=== PATIENT | female | born 1990 | race Caucasian/White ===

== ENCOUNTER 2016-11-09 22:49 | Emergency (ER) | payer BC, OTHER ==
[~2016-11-09] VITALS: Ht 160 cm; Wt 107.8 kg
[~2016-11-09 22:49] MED LIST: HYDR5TAB27 PO; NUVVR VAGRING
[2016-11-09 22:51] VITALS: TEMP 37.4; Ht 160 cm; Wt 107.8 kg
[2016-11-09] MEDS ORDERED: XYLOCAINE 1%/SOD BICARB 20 ML VIAL INFIL ONE (23:03)
[2016-11-09] MEDS ORDERED: CEPHALEXIN 500MG HOME PACK 1 EA BTL PO ONE (23:30)
[2016-11-09] MEDS ORDERED: SEPTRA DS HOME PACK 1 EA VIAL PO ONE (23:30)
[2016-11-09] MEDS ORDERED: DPPRI400 INJ (23:37)
[2016-11-10] MEDS ORDERED: CEPH500C2 PO (00:18)
[2016-11-10] MEDS ORDERED: SULF800T23 PO (00:18)
[2016-11-10 00:27] VITALS: BP 124/100; PULSE 99; O2SAT 98
--- NOTE | 2016-11-10 05:12 | EMERGENCY ROOM VISIT NOTE ---
ED Visit Note First contact with patient: 22:58 CHIEF COMPLAINT: Infection of the tailbone HISTORY OF PRESENT ILLNESS: This 26-year-old patient presents to the emergency department after they noticed a hard, red, tender area pilonidal area. It is slowly getting larger, more painful and tender. No fever, chills, or loss of appetite. There has been drainage from the area. There was no injury to the area preceding the infection. They rate the pain as mild and 3/10. Tetanus shot is up to date. They have tried surgical resection. The patient is not diabetic. The patient has history of subcutaneous abscesses. Patient had this surgically removed already. She cannot recall the surgeon's name. REVIEW OF SYSTEMS: A review of systems was performed with positives and pertinent negatives listed in the history of present illness. All other systems were reviewed and are negative. ALLERGIES: None MEDICATIONS: None PMH: [place] teeth SOCIAL HISTORY: No drug use PHYSICAL EXAM: Vital Signs: Reviewed Nurse's notes, vital signs stable. GENERAL : Pleasant female, no acute distress, non toxic in appearance, well-developed well-nourished. SKIN: There is an erythematous indurated area of the pilonidal cyst region which measures about 3 cm in diameter. It is fluctuant but there is no pointing or drainage. There is a zone of inflammation around it but no lymphangitis. Capillary refill less than 2 seconds. MUSCULOSKELETAL: There is no limitation of the range of motion of the legs. EMERGENCY DEPARTMENT COURSE: I examined the patient. After saline and Betadine cleansing and 5 mL of 1% buffered lidocaine anesthesia, the abscess was incised with a number 11 scalpel blade. A large amount of purulent material was released with more expressed by pressure. A swab was obtained for culture. The abscess cavity was further probed with a needle jukebox route driver and the deep pocket expressed. The abscess cavity was then copiously irrigated with sterile saline under pressure. The area was then packed with packing. The area was cleaned with sterile saline and dressed with bacitracin and a bulky bandage. The patient tolerated the procedure well. Patient was advised to follow-up in 3 days for wound repacking with family doctor or surgeon or here in the ER. Wound culture was taken. The patient was discharged home in stable condition. DIAGNOSIS: Abscess of the pilonidal cyst DISCHARGE INSTRUCTIONS & TREATMENT: As below Problem List Medical Problems: (1) Depression Status: Chronic (2) Pilonidal cyst Status: Resolved (3) Pilonidal cyst removal Status: Resolved Current/Historical Medications Scheduled Bupropion (Wellbutrin-Xl), 300 MG PO DAILY Cephalexin Monohydrate (Keflex), 500 MG PO QID Citalopram Hydrobromide (Citalopram Hydrobromide), 40 MG PO DAILY Medroxyprogesterone Acetate (Depo-Provera), 400 MG INJ [id number] Sulfa/Trimethoprim (Bactrim Ds 800MG/160MG), 1 TAB PO BID Allergies Coded Allergies: No Known Allergies (Unverified , 11/09/16) Vital Signs Date Time Temp Pulse Resp B/P Pulse Ox O2 Delivery O2 Flow Rate FiO2 11/10/16 00:27 99 18 124/100 98 11/09/16 23:40 97 18 125/78 97 Room Air 11/09/16 22:51 37.4 125 20 128/73 98 Room Air Medications Administered Medications (Trade) Dose Ordered Sig/Adelita Route Start Time Stop Time Status Last Admin Dose Admin Cephalexin Monohydrate (Keflex 500MG Home Pack) 1 homepack NOW ONCE PO 11/09/16 23:30 11/09/16 23:31 DC 11/09/16 23:30 1 HOMEPACK Trimethoprim/ Sulfamethoxazole (Sulfameth/ Trimeth Ds 800/ 160MG Home Pack) 1 homepack UD ONCE PO 11/09/16 23:30 11/09/16 23:31 DC 11/09/16 23:30 1 HOMEPACK Departure Information Impression Primary Impression: Pilonidal cyst with abscess Dispostion Home / Self-Care Condition GOOD Prescriptions Sulfa/Trimethoprim (Bactrim Ds 800MG/160MG) Tab 1 TAB PO BID for 9 Days, #18 TAB Prov: Kayla Sigala PA-C 11/10/16 Cephalexin Monohydrate (KEFLEX) 500 Mg Cap 500 MG PO QID for 9 Days, #36 CAP Prov: Kayla Sigala PA-C 11/10/16 Forms WORK / SCHOOL INSTRUCTIONS, HOME CARE DOCUMENTATION FORM, IMPORTANT VISIT INFORMATION Patient Instructions [facility], ED Abscess Nandini Anal IandD Additional Instructions Change outer dressing daily. Leave in a dressing in place. Wound repack in 3 days with family care or surgeon. Cephalexin(Keflex) 500mg: Take one pill four times daily for 10 days for your skin infection. All antibiotics can cause diarrhea. If this occurs and you feel worse or it does not resolve in 1-2 days follow up with your doctor or return to the Emergency Department as this could be signs of serious underlying problems. Any medication can cause an allergic reaction, stop the pills immediately and return to the ER for rash, hives, breathing difficulties, or swelling. Trimethoprim-Sulfamethoxazole(Bactrim DS): Take one pill twice daily for 10 days for your skin infection. All antibiotics can cause diarrhea. If this occurs and you feel worse or it does not resolve in 1-2 days follow up with your doctor or return to the Emergency Department as this could be signs of serious underlying problems. Any medication can cause an allergic reaction, stop the pills immediately and return to the ER for rash, hives, breathing difficulties, or swelling. Ibuprofen(Motrin, Advil) may be used for fever or pain. Use 600mg every six hours as needed. Take with food. Avoid using more than 2400mg in a 24 hour period. Do not use 2400mg per day for more than three consecutive days without physician direction. Prolonged inappropriate use can lead to stomach upset or ulcers. (AND/OR) Acetaminophen(Tylenol) may be used for fever or pain. Use 1000mg every six hours as needed. Avoid using more than 3000mg in a 24 hour period. Rest and drink plenty of fluids. Continue current medications. Return to the ER for severe pain, persistent fevers, spreading redness, or any worsening of your condition. Follow up with your primary physician within 2-3 days for a recheck of the current condition.
[2017-05-17] MEDS ORDERED: CITA40TA4 PO (11:01)
== END 2016-11-10 00:29 | disposition home or self-care (01) ==
LOC: C.EDB 22:50 → C.EDA 11-10 00:29
DX: L05.01 Pilonidal cyst with abscess (principal); F32.9 Major depressive disorder, single episode, unspecified; Z79.899 Other long term (current) drug therapy

== ENCOUNTER → 2017-04-15 | Outpatient (CLI) | payer OTHER ==
[~2017-04-15] MED LIST changes: +BUPRTAB51 PO; +CITA40TA4 PO; +DPPRI400 INJ; +HYDR-5688 PO; -HYDR5TAB27 PO; +IBUP-103 PO; -NUVVR VAGRING
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
== END | disposition home or self-care (01) ==
LOC: C.NEUR 20:00
DX: R53.83 Other fatigue (principal); R45.4 Irritability and anger

== ENCOUNTER 2017-05-17 22:11 | Emergency (ER) | payer OTHER ==
[~2017-05-17] VITALS: Ht 160 cm; Wt 109.4 kg
[~2017-05-17 22:11] MED LIST changes: -BUPRTAB51 PO; -HYDR-5688 PO; -IBUP-103 PO
[2017-05-17 22:14] VITALS: TEMP 37.4; Ht 160 cm; Wt 109.4 kg
[2017-05-17] MEDS ORDERED: IBUP-103 PO (22:37)
--- NOTE | 2017-05-17 22:39 | EMERGENCY ROOM VISIT NOTE ---
ED Visit Note First contact with patient: 22:20 CHIEF COMPLAINT: Low back pain HISTORY OF PRESENT ILLNESS: This 27-year-old female patient presents to the emergency department ambulatory complaining of pain in the low back which began to 5 days ago. The patient does not recall any specific injury but states that she was sleeping on an uncomfortable mattress and has also been taking care of her nieces that her visiting and has been picking them up. The pain was gradual in onset, is now constant and worse with movement. The patient notes the pain as sharp and a 7/10. The patient has taken ibuprofen with no significant relief of the pain. The patient denies any bowel or bladder difficulties. There has been no leg numbness or weakness, and no change in sensation. No nausea or vomiting or abdominal pain. No chest pain or shortness of breath. The patient has had prior back injuries. REVIEW OF SYSTEMS: No dysuria or increased urinary frequency. A 10 system review of systems was completed and pertinent positives and negatives are in the HPI. ALLERGIES: No known drug allergies MEDICATIONS: Wellbutrin, Celexa PMH: Patient denies SOCIAL HISTORY: The patient lives locally. She is a smoker PHYSICAL EXAM: VITALS: Vitals are noted on the nurse's note and reviewed by myself. No abnormalities noted. GENERAL: This is a 27-year-old female, in no acute distress, nondiaphoretic, well-developed well-nourished. SKIN: The skin was without rashes, erythema, edema, or bruising. Capillary refill less than 2 seconds. NECK: Supple without nuchal rigidity. No cervical spine tenderness. No paraspinous muscle tenderness. HEART: Regular rate and rhythm without murmurs gallops or rubs. LUNGS: Clear to auscultation bilaterally without wheezes, rales or rhonchi. MUSCULOSKELETAL: No muscle atrophy, erythema, or edema noted of the back. There is no tenderness over the lumbar spinous processes. There is mild tenderness over the paraspinous muscles on the left and in the area of the SI joint. There is no tenderness over the thoracic spine or paraspinous muscles. There are no muscle spasms present. The patient is slow to move around with maximum tenderness with sitting. Negative straight leg raise test. NEURO: Patient was alert and oriented to person place and time. Normal sensation to light and sharp touch. Deep tendon reflexes 2+ in the lower extremities. Strength is 5/5 in the lower extremities bilaterally. EMERGENCY DEPARTMENT COURSE: The patient was seen and examined. Previous visits were reviewed. The patient has localized left-sided low back pain. She does not have any flank pain or abdominal pain. She does not have neurologic deficit on exam or by history. Plain films of the lumbar spine does not reveal significant abnormality. The patient should continue anti-inflammatories. She will be given a very small prescription for [place]. She should contact her family doctor on Friday to schedule a follow-up appointment for further evaluation, management, possible referral to physical therapy. She should return sooner with any worsening symptoms. DIFFERENTIAL DIAGNOSIS: Lumbar strain, degenerative disc disease, spondylolisthesis, herniated disc, spinal stenosis, osteoporosis, fracture, cauda equina syndrome, neoplasm, infection, inflammatory arthritis, among others. L-SPINE MIN 4 VIEWS ROUTINE CLINICAL HISTORY: 27 years-old Female presenting with low back pain for one week, no known injury. TECHNIQUE: Frontal, bilateral oblique, and lateral views of the lumbar spine and coned in lateral view of the lumbosacral junction were obtained. COMPARISON: None. FINDINGS: Moderate stool burden. No gross pneumoperitoneum. Normal lumbar lordosis. Vertebral body heights and intervertebral disc spaces preserved. No osseous neural foraminal narrowing. No significant degenerative change. No radiographic evidence of acute fracture or subluxation. IMPRESSION: Normal lumbar spine. No radiographic evidence of acute osseous injury. Problem List Medical Problems: (1) Depression Status: Chronic (2) Pilonidal cyst Status: Resolved (3) Pilonidal cyst removal Status: Resolved Current/Historical Medications Scheduled Bupropion (Wellbutrin-Xl), 300 MG PO DAILY Citalopram Hydrobromide (Citalopram Hydrobromide), 40 MG PO DAILY Scheduled PRN Hydrocodone/Acetaminophen 5MG/325MG ([place] 5MG/325MG), 1 TABLET PO Q6 PRN for Pain Ibuprofen Tab (Advil), 400-600 MG PO Q6H PRN for Pain Allergies Coded Allergies: No Known Allergies (Unverified , 11/09/16) Vital Signs Date Time Temp Pulse Resp B/P (MAP) Pulse Ox O2 Delivery O2 Flow Rate FiO2 05/17/17 22:14 37.4 83 20 133/86 98 Room Air Medications Administered Medications (Trade) Dose Ordered Sig/Adelita Route Start Time Stop Time Status Last Admin Dose Admin Acetaminophen/ Hydrocodone Bitart ([place] 5/325mg Home Pack) 1 homepack UD ONCE PO 05/17/17 23:15 05/17/17 23:16 DC 05/17/17 23:31 1 HOMEPACK Departure Information Impression Primary Impression: Back pain Dispostion Home / Self-Care Condition GOOD Prescriptions Hydrocodone/Acetaminophen 5MG/325MG ([place] 5MG/325MG) Tab 1 TABLET PO Q6 Y for Pain, #10 TAB For Initial Treatment Prov: Mansi Ferrera PA-C 05/17/17 Referrals Dino Alvares Jr,D.O. (PCP) Patient Instructions Back Pain Relieve, ED Low Back Pain Injury, [facility] Additional Instructions Rest off your feet for 1 to 2 days, ice for 24 hrs then heat to the low back. See your own doctor or an orthopedist in 3-5 days if you are not improving. Ibuprofen 600 mg every 6 hours if needed for the pain. [place] 1 tablet every 6 hrs for worse pain. No driving or alcohol use with [place] . Return with fever, abdominal pain, vomiting or if you develop any problems with bowel or bladder function or if loss of sensation/movement of lower extremities. Problem Qualifiers Primary Impression: Back pain Back pain location: low back pain Chronicity: acute Back pain laterality: left Sciatica presence: without sciatica Qualified Codes: M54.5 - Low back pain
--- NOTE | 2017-05-17 23:00 | DIAGNOSTIC IMAGING REPORT ---
L-SPINE MIN 4 VIEWS ROUTINE CLINICAL HISTORY: 27 years-old Female presenting with low back pain for one week, no known injury. TECHNIQUE: Frontal, bilateral oblique, and lateral views of the lumbar spine and coned in lateral view of the lumbosacral junction were obtained. COMPARISON: None. FINDINGS: Moderate stool burden. No gross pneumoperitoneum. Normal lumbar lordosis. Vertebral body heights and intervertebral disc spaces preserved. No osseous neural foraminal narrowing. No significant degenerative change. No radiographic evidence of acute fracture or subluxation. IMPRESSION: Normal lumbar spine. No radiographic evidence of acute osseous injury. Electronically signed by: Pino Hill M.D. 05/17/2017 10:59 PM Dictated Date/Time: 05/17/2017 10:58 PM
[2017-05-17] MEDS ORDERED: NORCO 5/325MG HOME PACK PO ONE (23:15)
[2017-05-17] MEDS ORDERED: HYDR-5688 PO (23:15)
[2017-05-17] MEDS ORDERED: BUPRTAB51 PO (23:36)
[2017-05-18 00:03] VITALS: BP 140/76; PULSE 79; O2SAT 97
== END 2017-05-17 23:50 | disposition home or self-care (01) ==
LOC: C.EDB 22:13 → C.EDD 23:50
DX: M54.5 Low back pain (principal); F32.9 Major depressive disorder, single episode, unspecified; F17.200 Nicotine dependence, unspecified, uncomplicated; Z79.899 Other long term (current) drug therapy